=== PATIENT | female | born 1940 | race Two or more races ===

== ENCOUNTER 2020-07-23 09:18 | Outpatient (CLI) | payer OTHER ==
[~2020-07-23 09:18] MED LIST: ATENOLOL25 MG; HYZAAR 100-251 UDTAB; LISINOPRIL20 MG; RELAGESIC TABL1 EACH PO; [UNRECOGNIZED DRUG - OTHER] PO
== END 2020-07-23 09:20 | disposition home or self-care (01) ==
LOC: NUCLEAR 09:18
PROVIDERS: ATTEND Internal Medicine Cardiovascular Disease
DX: I20.9 Angina pectoris, unspecified (principal)
CPT/HCPCS: 78452; 93017; A9500; J0153

== ENCOUNTER 2021-04-25 16:47 | Inpatient (IN) | payer OTHER ==
[~2021-04-25] VITALS: Ht 165.1 cm; Wt 61.2 kg
[~2021-04-25 16:47] MED LIST changes: -ATORVASTATIN CA80 MG; -CANDESARTAN CIL32 MG; -CLOPIDOGREL BIS75 MG; -DONEPEZIL HCL10 MG; -DOXAZOSIN MESYLA4 MG; -EMERGEN-C 1,01000 MG; -FUROSEMIDE20 MG; -G-DOLOGEN 650-1 EACH; -GABAPENTIN300 M2; -PAIN RELIEVER500 M2; -PROTECT PLUS S1 EACH; -SIMVASTATIN40 MG; -ST. JOSEPH ASPI81 M2
[2021-04-26] MEDS ORDERED: CLOPIDOGREL BIS75 MG (14:55)
[2021-04-26] MEDS ORDERED: GABAPENTIN300 M2 (14:55)
[2021-04-26] MEDS ORDERED: DONEPEZIL HCL10 MG (14:55)
[2021-04-26] MEDS ORDERED: ST. JOSEPH ASPI81 M2 (14:55)
[2021-04-26] MEDS ORDERED: ATORVASTATIN CA80 MG (14:55)
[2021-04-26] MEDS ORDERED: G-DOLOGEN 650-1 EACH (14:56)
[2021-04-26] MEDS ORDERED: FUROSEMIDE20 MG (14:56)
[2021-04-26] MEDS ORDERED: EMERGEN-C 1,01000 MG (14:56)
[2021-04-26] MEDS ORDERED: DOXAZOSIN MESYLA4 MG (14:56)
[2021-04-26] MEDS ORDERED: CANDESARTAN CIL32 MG (14:56)
[2021-04-26] MEDS ORDERED: PROTECT PLUS S1 EACH (14:56)
[2021-04-26] MEDS ORDERED: SIMVASTATIN40 MG (14:56)
[2021-04-26] MEDS ORDERED: PAIN RELIEVER500 M2 (14:57)
== END 2021-04-30 13:06 | disposition home or self-care (01) | DRG 552 ==
LOC: ER 16:47 → MEDJ 04-26 14:08
PROVIDERS: ADMIT Internal Medicine Cardiovascular Disease; ATTEND Internal Medicine Cardiovascular Disease
PROC: B030ZZZ Magnetic Resonance Imaging (MRI) of Brain (ICD-10-PCS; principal; 2021-04-26)
PROC: BW38ZZZ Magnetic Resonance Imaging (MRI) of Head (ICD-10-PCS; 2021-04-26)
DX: M48.00 Spinal stenosis, site unspecified (principal); M54.16 Radiculopathy, lumbar region; M62.461 Contracture of muscle, right lower leg; R20.0 Anesthesia of skin; R53.1 Weakness; M54.59 Other low back pain; G44.89 Other headache syndrome; I10 Essential (primary) hypertension
CPT/HCPCS: 70544; 70551

== ENCOUNTER → 2021-04-25 | Emergency (ER) | payer OTHER ==
[~2021-04-25] MED LIST changes: +ATORVASTATIN CA80 MG; +CANDESARTAN CIL32 MG; +CLOPIDOGREL BIS75 MG; +DONEPEZIL HCL10 MG; +DOXAZOSIN MESYLA4 MG; +EMERGEN-C 1,01000 MG; +FUROSEMIDE20 MG; +G-DOLOGEN 650-1 EACH; +GABAPENTIN300 M2; +PAIN RELIEVER500 M2; +PROTECT PLUS S1 EACH; +SIMVASTATIN40 MG; +ST. JOSEPH ASPI81 M2
== END | disposition home or self-care (01) ==
LOC: ER 16:59 → MEDJ 04-26 13:28 → ER 04-26 13:28
DX: S00.83XA Contusion of other part of head, initial encounter (principal); X58.XXXA Exposure to other specified factors, initial encounter; Y93.89 Activity, other specified; Y92.9 Unspecified place or not applicable; I10 Essential (primary) hypertension; R51.9 Headache, unspecified; M48.00 Spinal stenosis, site unspecified

== ENCOUNTER 2021-05-05 13:18 | Emergency (ER) | payer OTHER ==
[~2021-05-05] VITALS: Ht 165.1 cm; Wt 61.2 kg
[~2021-05-05 13:18] MED LIST changes: +ATORVASTATIN CA80 MG; +CANDESARTAN CIL32 MG; +CLOPIDOGREL BIS75 MG; +DONEPEZIL HCL10 MG; +DOXAZOSIN MESYLA4 MG; +EMERGEN-C 1,01000 MG; +FUROSEMIDE20 MG; +G-DOLOGEN 650-1 EACH; +GABAPENTIN300 M2; +PAIN RELIEVER500 M2; +PROTECT PLUS S1 EACH; +SIMVASTATIN40 MG; +ST. JOSEPH ASPI81 M2
== END 2021-05-05 19:40 | disposition home or self-care (01) ==
LOC: ER 13:18
DX: R55 Syncope and collapse (principal); I10 Essential (primary) hypertension; Z86.73 Personal history of transient ischemic attack (TIA), and cerebral infarction without residual deficits

== ENCOUNTER 2021-06-05 12:34 | Emergency (ER) | payer OTHER ==
[~2021-06-05] VITALS: Ht 167.6 cm; Wt 68.0 kg
== END 2021-06-05 19:04 | disposition home or self-care (01) ==
LOC: ER 12:34
DX: R55 Syncope and collapse (principal); N39.0 Urinary tract infection, site not specified; B96.20 Unspecified Escherichia coli [E. coli] as the cause of diseases classified elsewhere

== ENCOUNTER 2021-09-07 08:41 | Emergency (ER) | payer OTHER ==
[~2021-09-07] VITALS: Ht 165.1 cm; Wt 60.8 kg
== END 2021-09-07 17:42 ==
LOC: ER 08:41
DX: G45.9 Transient cerebral ischemic attack, unspecified (principal); I10 Essential (primary) hypertension; I69.354 Hemiplegia and hemiparesis following cerebral infarction affecting left non-dominant side; M19.90 Unspecified osteoarthritis, unspecified site; Z20.822 Contact with and (suspected) exposure to COVID-19

== ENCOUNTER 2023-01-23 00:20 | Emergency (ER) | payer OTHER ==
[~2023-01-23] VITALS: Ht 165.1 cm; Wt 60.8 kg
[2023-01-23 02:06] LABS: HEMATOCRIT 36.1 % (36.0-45.00); HEMOGLOBIN 12.1 g/dL (12.0-15.00); MEAN CELL VOLUME 87.9 fL (80.00-100.00); MEAN CORPUSCULAR HEMOGLOBIN 29.6 pg (27.00-32.0); MEAN CORPUSCULAR HGB CONC 33.6 g/dl (32.0-36.0); PLATELET COUNT 246 K/uL (150-450); RED CELL DISTRIBUTION WIDTH 12.8 % (11.5-14.5)
[2023-01-23 02:22] LABS: INR 1.05; PARTIAL THROMBOPLASTIN TIME 25.6 SECONDS (22.0-34.0)
[2023-01-23 02:26] LABS: ALBUMIN 3.5 gm/dL (3.4-5.0); BILIRUBIN TOTAL 0.37 mg/dL (0.3-1.2); CALCIUM 9.1 mg/dL (8.5-10.1); CREATININE SERUM 0.96 mg/dL (0.55-1.02); GFR 55.37; GLOBULINA 4.4 G/DL (2.4-3.5); POTASSIUM 3.93 mEq/L (3.5-5.1); TOTAL PROTEIN 7.9 gm/dL (6.4-8.2)
[2023-01-23 03:07] LABS: URINE APPEARANCE Cloudy; URINE BILIRRUBIN Negative (NEGATIVE); URINE BLOOD Negative; URINE COLOR Yellow; URINE GLUCOSE Negative (NEGATIVE); URINE LEUKOCYTE Moderate; URINE NITRATE Negative; URINE PROTEIN Trace (NEGATIVE)
[2023-01-23 03:11] LABS: URINE RBC 25.4 uL (0.0-20.8); URINE WBC 361.7 uL (0.0-23.2)
[2023-01-23 03:36] LABS: ABG PH 7.436 (7.35-7.45); ABG PO2 70.3 mmHg (80-100); ABG pCO2 45.7 mmHg (35-45); BICARBONATE 30.1 mmol/l (23-25); SaO2 94.7 %; Tco2 31.5 mmol/l; o2 21 %
[2023-01-23 03:37] LABS: allen test SATISFACTORY; puncture site RADIAL RIGHT
[2023-01-23 03:55] LABS: URINE BACTERIA > 9821.5 uL (0.0-1933); URINE EPITHELIAL CELLS 0.9 uL (0.0-38.8)
== END 2023-01-23 20:39 | disposition home or self-care (01) ==
LOC: ER 00:20
PROVIDERS: General Practice
DX: J40 Bronchitis, not specified as acute or chronic (principal); I10 Essential (primary) hypertension; G45.8 Other transient cerebral ischemic attacks and related syndromes; S00.83XA Contusion of other part of head, initial encounter; R51.9 Headache, unspecified; Z20.822 Contact with and (suspected) exposure to COVID-19
CPT/HCPCS: 36415; 51702; 82803; 93005; 94640; 96365; 96366; 99284; J0456; J0696; J2920; J2930; J3490